=== PATIENT | female | born 1965 | race African-American/Black ===

== ENCOUNTER 2021-11-04 16:20 | Inpatient (IN) | payer MEDICAID ==
[~2021-11-04] VITALS: Ht 154.9 cm; Wt 58.1 kg
[~2021-11-04 16:20] MED LIST: ALBU17AE26; AMIT10TA6 PO; B50 PO; CYCL10TA21 PO; DOCU-138 PO; HYDR-3927 PO; HYDR2TAB4 PO; KEPP500 PO; OMEP20CA4 PO; PHEN100C4 PO; PHEN30TA50 PO
[2021-11-04] MEDS ORDERED: MORPHINE SULFATE 4 MG/ML CPJ (NOT FOR IM USE) IV ONE (17:00)
[2021-11-04] MEDS ORDERED: ONDANSETRON HCL 4MG/2ML INJ IV ONE (17:00)
[2021-11-04] MEDS ORDERED: SODIUM CHLORIDE 0.9% 1,000 ML IV ONE (17:00)
[2021-11-04 17:15] LABS: HEMOGLOBIN. 17.2 g/dL (12.0-16.0); MEAN CORPUSCULAR HEMOGLOBIN 30.6 pg (28.0-32.0); MEAN CORPUSCULAR VOLUME 92.4 fL (81.0-99.0); MEAN PLATELET VOLUME 8.7 fl (7.4-10.4); PLATELET 137 x1000/uL (130-400); RED BLOOD CELL COUNT 5.62 mill/uL (4.2-5.4); RED CELL DISTRIBUTION WIDTH 14.9 % (11.6-14.6)
[2021-11-04 17:21] LABS: CHLORIDE 103 mEq/L (98-107)
[2021-11-04 17:29] LABS: ETHANOL BLOOD < 10 mg/dL
[2021-11-04 17:59] LABS: PLATELET ESTIMATE NORMAL
[2021-11-04 18:34] LABS: HCG SCREEN NEGATIVE
[2021-11-04 18:53] LABS: CLARITY URINE CLEAR (CLEAR); COLOR URINE YELLOW (YELLOW); KETONES URINE TRACE (NEGATIVE); LEUKOCYTE ESTERASE URINE 1+ (NEGATIVE); NITRITE URINE NEGATIVE (NEGATIVE); OCCULT BLOOD URINE 1+ (NEGATIVE); PH URINE 5.5 (4.5-8.0); PROTEIN URINE 1+ (NEGATIVE)
[2021-11-04 19:05] LABS: *AMPHETAMINES SCREEN URINE NEGATIVE (NEGATIVE); *BARBITURATES SCREEN URINE NEGATIVE (NEGATIVE); *BENZODIAZEPINES SCREEN URINE NEGATIVE (NEGATIVE); *COCAINE SCREEN URINE PRESUMTIVE POSITIVE (NEGATIVE); CANNABINOID URINE SCREEN PRESUMTIVE POSITIVE (NEGATIVE); METHADONE URINE SCREEN NEGATIVE (NEGATIVE); OPIATES URINE SCREEN PRESUMTIVE POSITIVE (NEGATIVE); PHENCYCLIDINE URINE SCREEN NEGATIVE (NEGATIVE)
[2021-11-04] MEDS ORDERED: AZITHROMYCIN 500MG/250ML 250 ML IV ONE (19:30)
[2021-11-04] MEDS ORDERED: CEFTRIAXONE 1 G PREMIX 50 ML IV ONE (19:30)
[2021-11-04] MEDS ORDERED: ONDANSETRON HCL 4MG/2ML INJ IV NR (20:15)
[2021-11-04 20:44] LABS: PROTHROMBIN TIME 10.7 sec (9.6-11.0)
[2021-11-04] MEDS ORDERED: AZITHROMYCIN 500MG/250ML 250 ML IV NR (22:45)
[2021-11-04] MEDS ORDERED: CEFTRIAXONE 1 G PREMIX 50 ML IV NR (22:45)
[2021-11-04] MEDS ORDERED: AZITHROMYCIN 500MG/250ML 250 ML IV SCH (23:45)
[2021-11-05] VITALS: BP_SYST 128; BP_SYST 138; BP_DIAS 80; BP_DIAS 94
[2021-11-05] MEDS: DEXT 5%/0.45% NACL 1000ML 1,000 ML IV SCH ×2 (00:23→12:56)
[2021-11-05] MEDS: PANTOPRAZOLE SODIUM 40 MG/VIAL IV SCH ×2 (00:32→08:42)
[2021-11-05 04:00] VITALS: BP 119/89
[2021-11-05 08:00] VITALS: BP 144/98
[2021-11-05] MEDS: ONDANSETRON HCL 4MG/2ML INJ IV PRN ×2 (08:42→13:49)
[2021-11-05] MEDS: ENOXAPARIN 40MG/0.4ML SYR SUBCUT SCH (08:44)
[2021-11-05] MEDS ORDERED: CEFTRIAXONE 1 G PREMIX 50 ML IV SCH (09:00)
[2021-11-05 12:00] VITALS: BP 157/95
[2021-11-05 16:00] VITALS: BP 150/93
[2021-11-05 20:00] VITALS: BP 155/116
[2021-11-05] MEDS ORDERED: AZITHROMYCIN 500MG in DEXTROSE 5% WATER 250ML IV SCH (23:00)
[2021-11-05] MEDS ORDERED: CEFTRIAXONE 1,000 MG in DEXTROSE 5% WATER 50 ML IV SCH (23:00)
[2021-11-06] VITALS: BP 142/113
[2021-11-06] MEDS ORDERED: NALOXONE HCL 0.4MG/ML VIAL IV PRN (01:45)
[2021-11-06] MEDS: ONDANSETRON HCL 4MG/2ML INJ IV PRN ×3 (02:02→12:51)
[2021-11-06] MEDS: HYDROCODONE/ACETAMINOPHEN 10/325MG TABLET PO PRN ×3 (02:03→23:22)
[2021-11-06 04:00] VITALS: BP 138/101
[2021-11-06] MEDS: DEXT 5%/0.45% NACL 1000ML 1,000 ML IV SCH ×2 (04:24→15:51)
[2021-11-06] MEDS: PANTOPRAZOLE SODIUM 40 MG/VIAL IV SCH (08:11)
[2021-11-06] MEDS: ENOXAPARIN 40MG/0.4ML SYR SUBCUT SCH (08:11)
[2021-11-06 12:00] VITALS: BP 143/96
[2021-11-06 16:00] VITALS: BP 146/90
[2021-11-06 20:00] VITALS: BP 138/88
[2021-11-07] VITALS: BP 133/90
[2021-11-07] MEDS: DEXT 5%/0.45% NACL 1000ML 1,000 ML IV SCH ×3 (02:20→21:02)
[2021-11-07 04:00] VITALS: BP 141/84
[2021-11-07 08:00] VITALS: BP 116/78
[2021-11-07] MEDS: ENOXAPARIN 40MG/0.4ML SYR SUBCUT SCH (08:42)
[2021-11-07] MEDS: HYDROCODONE/ACETAMINOPHEN 10/325MG TABLET PO PRN ×2 (08:44→15:46)
[2021-11-07] MEDS: PANTOPRAZOLE SODIUM 40 MG/VIAL IV SCH (08:44)
[2021-11-07 12:00] VITALS: BP 107/73
[2021-11-07 16:00] VITALS: BP 100/60
[2021-11-07] MEDS ORDERED: MORPHINE SULFATE 2 MG/ML CPJ (NOT FOR IM USE) IV NR (19:34)
[2021-11-07 20:00] VITALS: BP 147/90
[2021-11-07] MEDS: ZOLPIDEM TARTRATE 5MG TABLET PO PRN (21:05)
[2021-11-08] VITALS: BP 106/74
[2021-11-08 04:00] VITALS: BP 109/69
[2021-11-08] MEDS: HYDROCODONE/ACETAMINOPHEN 10/325MG TABLET PO PRN (07:55)
[2021-11-08] MEDS: DEXT 5%/0.45% NACL 1000ML 1,000 ML IV SCH ×2 (07:58→17:38)
[2021-11-08 08:00] VITALS: BP 140/89
[2021-11-08] MEDS: PANTOPRAZOLE SODIUM 40 MG/VIAL IV SCH (09:00)
[2021-11-08] MEDS: ENOXAPARIN 40MG/0.4ML SYR SUBCUT SCH (09:00)
[2021-11-08 12:00] VITALS: BP 111/78
[2021-11-08 16:00] VITALS: BP 128/64
[2021-11-08] MEDS: OXYCODONE HCL/ACETAMINOPHEN 5/325MG TABLET PO PRN (19:51)
[2021-11-08 20:00] VITALS: BP 124/95
[2021-11-08] MEDS: ZOLPIDEM TARTRATE 5MG TABLET PO PRN (20:51)
[2021-11-09] VITALS: BP 106/77
[2021-11-09 04:00] VITALS: BP 133/92
[2021-11-09] MEDS: OXYCODONE HCL/ACETAMINOPHEN 5/325MG TABLET PO PRN ×2 (04:23→21:12)
[2021-11-09] MEDS: DEXT 5%/0.45% NACL 1000ML 1,000 ML IV SCH ×3 (04:23→23:45)
[2021-11-09 08:00] VITALS: BP 137/88
[2021-11-09] MEDS: ENOXAPARIN 40MG/0.4ML SYR SUBCUT SCH (08:16)
[2021-11-09] MEDS: PANTOPRAZOLE SODIUM 40 MG/VIAL IV SCH (08:16)
[2021-11-09 12:00] VITALS: BP 120/83
[2021-11-09 16:00] VITALS: BP 143/95
[2021-11-09] MEDS: HYDROCODONE/ACETAMINOPHEN 10/325MG TABLET PO PRN (18:58)
[2021-11-09 20:00] VITALS: BP 133/90
[2021-11-09] MEDS: ZOLPIDEM TARTRATE 5MG TABLET PO PRN (21:12)
[2021-11-10] VITALS: BP 139/91
[2021-11-10 04:00] VITALS: BP 128/66
[2021-11-10 06:54] LABS: BASOPHILS % 0.6 % (0.0-2.0); EOSINOPHILS % 2.8 % (0.0-5.0); HEMATOCRIT. 40.5 % (36.0-48.0); HEMOGLOBIN. 13.5 g/dL (12.0-16.0); MEAN CORPUSCULAR HEMOGLOBIN 30.6 pg (28.0-32.0); MEAN CORPUSCULAR VOLUME 91.7 fL (81.0-99.0); MONOCYTES % 13.1 % (2.0-8.0); NEUTROPHILS % 25.5 % (40.0-76.0); PLATELET 150 x1000/uL (130-400); RED BLOOD CELL COUNT 4.42 mill/uL (4.2-5.4); RED CELL DISTRIBUTION WIDTH 14.6 % (11.6-14.6)
[2021-11-10 07:14] LABS: CHLORIDE 100 mEq/L (98-107)
[2021-11-10 08:00] VITALS: BP 128/78
[2021-11-10] MEDS: ENOXAPARIN 40MG/0.4ML SYR SUBCUT SCH (08:08)
[2021-11-10] MEDS: HYDROCODONE/ACETAMINOPHEN 10/325MG TABLET PO PRN (08:08)
[2021-11-10] MEDS: DEXT 5%/0.45% NACL 1000ML 1,000 ML IV SCH ×2 (08:59→19:45)
[2021-11-10] MEDS ORDERED: FAMOTIDINE 20MG/2ML VIAL IV SCH (09:00)
[2021-11-10] MEDS: OXYCODONE HCL/ACETAMINOPHEN 5/325MG TABLET PO PRN ×3 (09:09→20:04)
[2021-11-10 12:00] VITALS: BP 138/98
[2021-11-10 16:00] VITALS: BP 122/97
[2021-11-10 20:00] VITALS: BP 125/89
[2021-11-10] MEDS: FAMOTIDINE 20MG TABLET PO SCH (20:05)
[2021-11-10] MEDS: ZOLPIDEM TARTRATE 5MG TABLET PO PRN (20:05)
[2021-11-11] VITALS: BP 144/78
[2021-11-11] MEDS: OXYCODONE HCL/ACETAMINOPHEN 5/325MG TABLET PO PRN ×5 (00:04→21:29)
[2021-11-11 04:00] VITALS: BP 128/85
[2021-11-11] MEDS: DEXT 5%/0.45% NACL 1000ML 1,000 ML IV SCH ×2 (05:21→16:09)
[2021-11-11] MEDS: ENOXAPARIN 40MG/0.4ML SYR SUBCUT SCH (09:25)
[2021-11-11] MEDS: FAMOTIDINE 20MG TABLET PO SCH ×2 (09:25→21:28)
[2021-11-11 12:00] VITALS: BP 129/79
[2021-11-11] MEDS ORDERED: NALOXONE HCL 0.4MG/ML VIAL IV PRN (13:15)
[2021-11-11] MEDS ORDERED: IOHEXOL-300 100 ML BOTTLE ONE (17:34)
[2021-11-11 20:00] VITALS: BP 103/80
[2021-11-11] MEDS: ZOLPIDEM TARTRATE 5MG TABLET PO PRN (21:35)
[2021-11-12] VITALS: BP 105/64
[2021-11-12] MEDS: DEXT 5%/0.45% NACL 1000ML 1,000 ML IV SCH ×2 (01:28→11:18)
[2021-11-12] MEDS: OXYCODONE HCL/ACETAMINOPHEN 5/325MG TABLET PO PRN (02:43)
[2021-11-12 04:00] VITALS: BP 119/73
[2021-11-12 07:46] VITALS: BP 115/86
[2021-11-12] MEDS: FAMOTIDINE 20MG TABLET PO SCH (08:32)
[2021-11-12] MEDS: ENOXAPARIN 40MG/0.4ML SYR SUBCUT SCH (08:33)
[2021-11-12] MEDS ORDERED: TRAZODONE HCL 50MG TABLET PO PRN (10:00)
[2021-11-12] MEDS ORDERED: CITALOPRAM HYDROBROMIDE 10MG TABLET PO SCH (10:00)
[2021-11-12 11:57] VITALS: BP 113/80
[2021-11-12 14:40] VITALS: BP 113/80
[2021-11-12] MEDS ORDERED: RISPERIDONE 1MG TABLET PO SCH (21:00)
[2021-11-12] MEDS ORDERED: TRAZODONE HCL 50MG TABLET PO SCH (21:00)
== END 2021-11-12 15:20 | disposition left against medical advice (07) | DRG 347 ==
LOC: ER 16:20 → ENRESERV 21:49 → 8WST 23:38 → 7WST 11-05 04:08
PROVIDERS: ADMIT Internal Medicine; ATTEND Emergency Medicine
DX: M48.07 Spinal stenosis, lumbosacral region (principal); J12.82 Pneumonia due to coronavirus disease 2019; U07.1 COVID-19; D72.819 Decreased white blood cell count, unspecified; E78.5 Hyperlipidemia, unspecified; F12.90 Cannabis use, unspecified, uncomplicated; F14.10 Cocaine abuse, uncomplicated; K52.9 Noninfective gastroenteritis and colitis, unspecified; G40.909 Epilepsy, unspecified, not intractable, without status epilepticus; I44.30 Unspecified atrioventricular block; I10 Essential (primary) hypertension; F17.210 Nicotine dependence, cigarettes, uncomplicated; N32.89 Other specified disorders of bladder; F20.9 Schizophrenia, unspecified; F32.A Depression, unspecified; M48.02 Spinal stenosis, cervical region; G47.00 Insomnia, unspecified; F41.9 Anxiety disorder, unspecified; Z68.30 Body mass index [BMI] 30.0-30.9, adult; Z85.41 Personal history of malignant neoplasm of cervix uteri; Z92.21 Personal history of antineoplastic chemotherapy; Z92.3 Personal history of irradiation; Z79.899 Other long term (current) drug therapy; Z53.29 Procedure and treatment not carried out because of patient's decision for other reasons
CPT/HCPCS: 36415; 71045; 72141; 72146; 72148; 74018; 74176; 74177; 80048; 80053; 80305; 80320; 81003; 83605; 83735; 84703; 85025; 87426; 93306; 97162; 97530; 99291; C1893; C9113; J0456; J0696; J1650; J2270; J2405; J3490; J7030; J7060; Q9967; G0480